=== PATIENT | male | born 1940 | race Caucasian/White ===

== ENCOUNTER → 2020-05-07 15:11 | Outpatient (BNVA) | payer MEDICARE, SELFPAY | PROVIDERS: PCP Internal Medicine; Visit Provider Urology | DX: N40.1 Benign prostatic hyperplasia with lower urinary tract symptoms (principal); N13.8 Other obstructive and reflux uropathy; R33.8 Other retention of urine | CPT/HCPCS: 51798; 99212 ==

== ENCOUNTER 2024-07-10 17:34 | Emergency (ER) | payer MEDICARE, SELFPAY ==
--- NOTE | ~2024-07-10 | XR_ITS ---
CLINICAL HISTORY: fall Radiograph of the pelvis, single view Comparison: None Findings: No fracture or dislocation. Mild degenerative change. Bone mineralization is normal. No soft tissue abnormality. Impression: No fracture. This document has been electronically signed by: Alicia Rios MD on 07/10/2024 18:57:37
--- NOTE | ~2024-07-10 | XR_ITS ---
CLINICAL HISTORY: fall Radiographs of the right hip, 2 views Comparison: None Findings: No fracture or dislocation. Mild degenerative change. Bone mineralization is normal. Soft tissue swelling. Impression: No fracture. This document has been electronically signed by: Alicia Rios MD on 07/10/2024 18:57:48
--- NOTE | ~2024-07-10 | CT_ITS ---
CLINICAL HISTORY: fall CT head without contrast Comparison: None Findings: No acute hemorrhage. No extra-axial fluid collection. No hydrocephalus, mass-effect or herniation. Aguilera-white differentiation is maintained. White matter is within normal limits for age. No acute orbital pathology. Question left frontal scalp soft tissue swelling. No fracture. Mild mucosal thickening in the right maxillary sinus. The other visualized paranasal sinuses are predominantly clear. The mastoid air cells are clear. Impression: No acute intracranial findings. This document has been electronically signed by: Alicia Rios MD on 07/10/2024 18:53:13
--- NOTE | ~2024-07-10 | XR_ITS ---
CLINICAL HISTORY: fall Radiographs of the lumbar spine, 3 views Comparison: None Findings: Trace dextrocurvature with the apex at L2/L3. No fracture. The vertebral body heights are preserved. There is severe intervertebral disc space narrowing at L5/S1. There is moderate to severe intervertebral disc space narrowing at L3/L4 and L4/L5. Moderate multilevel endplate osteophytosis and sclerosis. Moderate lower lumbar facet hypertrophy. Vascular calcifications Impression: No acute findings. Moderate to severe degenerative change. This document has been electronically signed by: Alicia Rios MD on 07/10/2024 18:55:51
--- NOTE | ~2024-07-10 | CT_ITS ---
CLINICAL HISTORY: fall CT cervical spine without contrast Comparison: None Findings: Normal alignment. No acute fracture. Lucencies at the anterior inferior osteophytes at C2 through C4, chronic appearing. No severe central spinal canal stenosis. No epidural hematoma. Normal thickness of the prevertebral soft tissues. Mild biapical scarring. Impression: No acute findings. This document has been electronically signed by: Alicia Rios MD on 07/10/2024 18:49:23
[2024-07-10 17:37] VITALS: BP 151/79; PULSE 82; RESP 20; TEMP 36.4; O2SAT 98; BMI 23.7
--- NOTE | 2024-07-10 17:44 | ED.GENADULT ---
HPI - General Adult General Chief complaint: Fall Stated complaint: right hip pain/fellx2 Time Seen by Provider: 07/10/24 21:36 Source: patient Limitations: no limitations History of Present Illness ED Provider: Astrid Hyatt PA-C HPI narrative: 84-year-old male with a history of hypertension, hyperlipidemia, BPH, presents after mechanical fall. Patient tripped, falling backwards landing on his bottom. Patient complains of pelvic and hip pain. Patient fell multiple times this week, during 1 of the falls he did strike his head. There was no loss consciousness he is not on a blood thinner. Patient does not complain of neck pain at this time Related Data Home Medications ?Medication ?Instructions ?Recorded ?Confirmed finasteride 5 mg tablet 5 mg PO DAILY 04/13/20 05/07/20 lisinopril 40 mg tablet 40 mg PO DAILY 04/13/20 05/07/20 simvastatin 20 mg tablet 20 mg PO BEDTIME 04/13/20 05/07/20 Previous Rx's ?Medication ?Instructions ?Recorded finasteride 5 mg tablet 5 mg PO DAILY 90 days #90 tabs 09/20/20 tamsulosin 0.4 mg capsule 0.4 mg PO DAILY 90 days #90 caps 10/24/20 finasteride 5 mg tablet 5 mg PO DAILY #30 tabs 07/10/24 Allergies Allergy/AdvReac Type Severity Reaction Status Date / Time No Known Allergies Allergy Verified 07/10/24 17:48 [No Known Allergies*] Review of Systems Review of Systems: Yes all other systems are reviewed and are negative Constitutional: Constitutional: Denies fatigue and Denies fever(s) ENT: Denies dizziness Cardiovascular: Cardiovascular: Denies chest pain, Denies syncope, Denies palpitations and Denies dyspnea Respiratory: Respiratory: Denies dyspnea Musculoskeletal: Musculoskeletal: Reports arthralgias and Denies joint swelling Neurologic: Denies dizziness and Denies syncope Endocrine: Endocrine: Denies fatigue and Denies palpitations [facility] Past Medical History Attestation statement: The following information was validated with the patient. Family History Family History (Updated 04/13/20 @ 09:59 by JUANA Hernandez) Father No problems noted. Mother No problems noted. Social History Social History Advance Directives: No Advance Directives Information Provided: No Physical Exam ED Vital Signs: Vital Signs - 24 hr 07/10/24 17:37 07/10/24 22:27 Temperature 97.6 F 97.3 F Pulse Rate 82 82 Respiratory Rate 20 16 Blood Pressure 151/79 H 194/84 H Pulse Oximetry 98 100 Oxygen Delivery Method Room Air Room Air BMI result Body Mass Index 23.7 Const Other: Alert, well-appearing, no obvious signs of head trauma on exam Orientation/consciousness: patient oriented x3 Resp Effort & Inspection: normal respiratory effort Cardio Other: Normal peripheral perfusion Skin Other: Warm dry no rash Neuro General: patient oriented x3, no focal motor deficits and CN's II-XI intact bilaterally Extrem Other: Moves all extremities independently walked into triage, antalgic gait but steady Psych Other: Calm cooperative Course Course Course Narrative: RME, this is a rapid medical exam performed by Emanuel Quintana please refer to primary provider for complete H&P- 84-year-old male presents for evaluation of multiple falls. Per the patient's son, the patient fell 9 days ago, once last week and he believes the patient fell either Wednesday night or Wednesday but the patient's son was out of town. The patient complains of right hip pain but he reports this is improving from his most recent fall. He does complain of lower back pain. Per the patient's son the patient is limping more so than he was on Wednesday. Plan for x-rays and CT scan due to the falls Medical Decision Making Medical Decision Making MDM Narrative: 84-year-old male with a history of hypertension, hyperlipidemia, BPH, presents after mechanical fall. Patient tripped, falling backwards landing on his bottom. Patient complains of pelvic and hip pain. Patient fell multiple times this week, during 1 of the falls he did strike his head. There was no loss consciousness he is not on a blood thinner. Patient does not complain of neck pain at this time Problem: Age, frequent falls gait instability History: Per patient and it was sudden I have considered the following differential diagnoses: Fracture, dislocation, intracranial hemorrhage Plan: X-rays of pelvis hip and head were obtained from triage studies negative. Given frequent falls with gait instability, I did offer case management and physical therapy. Both the patient and his son declined. The son lives with his father, they want to try to organize this on their own as an outpatient. I have independently reviewed the following tests: X-ray:Impression: No fracture.of pelvis This document has been electronically signed by: Alicia Rios MD on 07/10/2024 18:57:37 X-ray Findings: No fracture or dislocation. Mild degenerative change. Bone mineralization is normal. Soft tissue swelling. Impression: No fracture. This document has been electronically signed by: Alicia Rios MD on 07/10/2024 18:57:48 [facility] xray: chela dextrocurvature with the apex at L2/L3. No fracture. The vertebral body heights are preserved. There is severe intervertebral disc space narrowing at L5/S1. There is moderate to severe intervertebral disc space narrowing at L3/L4 and L4/L5. Moderate multilevel endplate osteophytosis and sclerosis. Moderate lower lumbar facet hypertrophy. Vascular calcifications Impression: No acute findings. Moderate to severe degenerative change. This document has been electronically signed by: Alicia Rios MD on 07/10/2024 18:55:51 CT brain:mpression: No acute intracranial findings. This document has been electronically signed by: Alicia Rios MD on 07/10/2024 18:53:13 CT cervical: [place] [id number] CT Scan Report Signed Patient: Jose Cruz MR#: [id number] : 1940 Acct:[id number] Age/Sex: 84 / M ADM Date: 07/10/24 Loc: .ED Attending Dr: Ordering Physician: Rodríguez Quintana Date of Service: 07/10/24 Procedure(s): CT cervical spine wo IV con Accession Number(s): [id number] cc: Rodríguez Quintana; Physician,None ~ Report Number: [id number]: Total DLP = 335.00 mGy-cm CLINICAL HISTORY: fall CT cervical spine without contrast Comparison: None Findings: Normal alignment. No acute fracture. Lucencies at the anterior inferior osteophytes at C2 through C4, chronic appearing. No severe central spinal canal stenosis. No epidural hematoma. Normal thickness of the prevertebral soft tissues. Mild biapical scarring. Impression: No acute findings. This document has been electronically signed by: Alicia Rios MD on 07/10/2024 18:49:23 Discharge Plan Discharge Clinical Impression: Fall at home Patient Disposition: Home, Self-Care Instructions: Fall Prevention for Older Adults (ED), Fall Prevention (ED) Additional Instructions: X-rays of the pelvis hip and lumbar spine were normal you do not have a fracture, you do have some arthritis. CT scans of your head and neck were normal as well. Follow up with your primary care provider. I have given you prescription for your finasteride. I offered you case management and physical therapy assessment, you declined. To note you can turn to the emergency department at any time if you require assistance. Prescriptions: New finasteride 5 mg tablet 5 mg PO DAILY Qty: 30 0RF No Action finasteride 5 mg tablet 5 mg PO DAILY 90 Days Qty: 90 2RF tamsulosin 0.4 mg capsule 0.4 mg PO DAILY 90 Days Qty: 90 2RF simvastatin 20 mg tablet 20 mg PO BEDTIME lisinopril 40 mg tablet 40 mg PO DAILY finasteride 5 mg tablet 5 mg PO DAILY Print Language: Ukrainian
[2024-07-10 22:27] VITALS: BP 194/84; PULSE 82; RESP 16; TEMP 36.3; O2SAT 100
[2024-07-10 23:14] VITALS: BP 0/0; PULSE 0; RESP 0; TEMP -17.7; TEMP 0; O2SAT 0
== END 2024-07-10 23:23 | disposition home or self-care (01) ==
PROVIDERS: Emergency Provider Emergency Medicine Emergency Medical Services
DX: R10.2 Pelvic and perineal pain (principal); M25.559 Pain in unspecified hip; I10 Essential (primary) hypertension; E78.5 Hyperlipidemia, unspecified; Z79.899 Other long term (current) drug therapy; Z91.81 History of falling
CPT/HCPCS: 70450; 72100; 72125; 72170; 73501; 99283; 99284

== ENCOUNTER → 2024-07-10 17:50 | Outpatient (BNV) | payer MEDICARE, SELFPAY | PROVIDERS: Visit Provider Radiology Diagnostic Radiology | DX: R10.2 Pelvic and perineal pain (principal); M25.551 Pain in right hip; Z03.89 Encounter for observation for other suspected diseases and conditions ruled out | CPT/HCPCS: 70450; 72100; 72125; 72170; 73501 ==